=== PATIENT | female | born 1970 | race African-American/Black ===

== ENCOUNTER 2019-12-02 10:34 | Emergency (ER) | payer MEDICAID ==
[~2019-12-02] VITALS: Ht 157.5 cm; Wt 95.0 kg
[2019-12-02] MEDS ORDERED: HYDROCODONE/ACETAMINOPHEN 5/325MG TABLET PO ONE (12:15)
[2019-12-02 13:03] VITALS: BP 148/88
== END 2019-12-02 13:04 | disposition home or self-care (01) ==
LOC: ER 10:34
DX: M25.562 Pain in left knee (principal); M54.5 Low back pain; G89.29 Other chronic pain; J44.9 Chronic obstructive pulmonary disease, unspecified; I10 Essential (primary) hypertension; Z88.0 Allergy status to penicillin; Z88.2 Allergy status to sulfonamides; Z88.8 Allergy status to other drugs, medicaments and biological substances; Z88.6 Allergy status to analgesic agent
CPT/HCPCS: 99283

== ENCOUNTER 2021-05-12 18:03 | Emergency (ER) | payer MEDICAID ==
[~2021-05-12] VITALS: Ht 154.9 cm; Wt 113.0 kg
[2021-05-12] MEDS ORDERED: T3 PO (19:30)
[2021-05-12] MEDS ORDERED: CYCL10TA7 MT (19:31)
[2021-05-12] MEDS ORDERED: ACETAMINOPHEN WITH CODEINE 300/30MG TABLET PO ONE (19:45)
[2021-05-12] MEDS ORDERED: HYDROCODONE/ACETAMINOPHEN 5/325MG TABLET PO ONE (20:00)
[2021-05-12 20:27] VITALS: BP 162/116
== END 2021-05-12 20:28 | disposition home or self-care (01) ==
LOC: ER 18:03
DX: M54.5 Low back pain (principal); J44.9 Chronic obstructive pulmonary disease, unspecified; I10 Essential (primary) hypertension; Z88.0 Allergy status to penicillin; Z88.2 Allergy status to sulfonamides
CPT/HCPCS: 99283

== ENCOUNTER 2021-05-23 16:14 | Emergency (ER) | payer MEDICAID ==
[~2021-05-23] VITALS: Ht 154.9 cm; Wt 113.0 kg
[~2021-05-23 16:14] MED LIST: CYCL10TA7 MT; T3 PO
[2021-05-23] MEDS ORDERED: LIDOCAINE 5% PATCH TOP SCH (16:45)
[2021-05-23] MEDS ORDERED: HYDROCODONE/ACETAMINOPHEN 5/325MG TABLET PO ONE (16:45)
[2021-05-23] MEDS ORDERED: METHOCARBAMOL 500MG TABLET PO ONE (16:45)
[2021-05-23 17:09] VITALS: BP 168/93
[2021-05-23] MEDS ORDERED: METH-773 MT (17:37)
[2021-05-23] MEDS ORDERED: LIDO1ADH5 TP (17:37)
[2021-05-23] MEDS ORDERED: HYDR-4001 MT (17:37)
== END 2021-05-23 17:44 | disposition home or self-care (01) ==
LOC: ER 16:14
DX: G89.29 Other chronic pain (principal); M54.50 Low back pain, unspecified; I10 Essential (primary) hypertension; J44.1 Chronic obstructive pulmonary disease with (acute) exacerbation; J45.909 Unspecified asthma, uncomplicated; Z88.0 Allergy status to penicillin; Z88.2 Allergy status to sulfonamides; Z88.8 Allergy status to other drugs, medicaments and biological substances; Z88.6 Allergy status to analgesic agent; Z90.49 Acquired absence of other specified parts of digestive tract; Z98.890 Other specified postprocedural states
CPT/HCPCS: 99283